=== PATIENT | female | born 1995 | race Two or more races ===

== ENCOUNTER → 2018-05-05 | Outpatient (REF) | payer BC ==
[2018-05-07 10:25] LABS: HEPATITIS B SURFACE ANTIBODY POSITIVE (POSITIVE); RUBELLA IgG QUALITATIVE IMMUNE (IMMUNE)
[2018-05-08 18:21] LABS: HERPES ZOSTER, VARICELLA IgG 180 index (Immune >165); HERPES ZOSTER, VARICELLA IgM <0.91 index (0.00-0.90); MUMPS VIRUS IgG ANTIBODY 39.3 AU/mL (Immune >10.9); RUBEOLA IgG ANTIBODY <25.0 AU/mL (Immune >29.9)
== END ==
LOC: M LABDRAW1 17:29
PROVIDERS: ATTEND Physician Assistant Medical
DX: Z00.00 Encounter for general adult medical examination without abnormal findings (principal)

== ENCOUNTER → 2019-05-16 | Outpatient (REF) | payer BC ==
[2019-05-16 17:18] LABS: RUBELLA IgG QUALITATIVE IMMUNE (IMMUNE)
[2019-05-18 08:06] LABS: RUBEOLA IgG ANTIBODY >300.0 AU/mL (Immune >16.4)
== END ==
LOC: M LABDRAW1 15:47
PROVIDERS: ATTEND Physician Assistant Medical
DX: Z23 Encounter for immunization (principal)